=== PATIENT | male | born 2000 | race Hispanic/Latino ===

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

== ENCOUNTER 2020-06-03 | Emergency (ER) | payer OTHER ==
[2020-06-03] MEDS ORDERED: PREDNISONE20 MG PO (16:01)
== END 2020-06-03 16:17 | disposition home or self-care (01) | DRG 918 ==
DX: T59.91XA Toxic effect of unspecified gases, fumes and vapors, accidental (unintentional), initial encounter (principal); R07.9 Chest pain, unspecified; R06.02 Shortness of breath; J02.9 Acute pharyngitis, unspecified; F17.200 Nicotine dependence, unspecified, uncomplicated; Y92.89 Other specified places as the place of occurrence of the external cause; Y99.0 Civilian activity done for income or pay; Z20.822 Contact with and (suspected) exposure to COVID-19

== ENCOUNTER 2020-06-06 | Emergency (ER) | payer OTHER ==
[~2020-06-06] MED LIST changes: +PREDNISONE20 MG PO
[2020-06-06] MEDS ORDERED: ZOFRAN4 MG/TAB PO (20:13)
== END 2020-06-06 20:30 | disposition home or self-care (01) | DRG 392 ==
DX: R11.2 Nausea with vomiting, unspecified (principal); R10.13 Epigastric pain; F17.290 Nicotine dependence, other tobacco product, uncomplicated